=== PATIENT | female | born 1965 | race Caucasian/White ===

== ENCOUNTER 2016-10-25 11:22 | Emergency (ER) | payer BC ==
[2016-10-25 11:30] VITALS: BP 155/88
[2016-10-25] MEDS ORDERED: Sodium Chloride 0.9% 10 ML Syringe FLUSH PRN (11:39)
[2016-10-25] MEDS ORDERED: Aspirin 81 MG Tab.Chew PO ONE (11:53)
[2016-10-25] MEDS ORDERED: Alum Hydrox/Mag Hydrox/Simeth 30 ML, Lidocaine 2% 15 ML PO ONE ×2 (11:53)
--- NOTE | 2016-10-25 11:59 | EDM.PDOC ---
ED HPI GENERAL MEDICAL PROBLEM - General Chief Complaint: Chest Pain Stated Complaint: CHEST PAIN Time Seen by Provider: 10/25/16 11:39 Source of Information: Reports: Patient History Limitations: Reports: No Limitations - History of Present Illness INITIAL COMMENTS - FREE TEXT/NARRATIVE: Patient is a 51-year-old female presents ED complaining of substernal chest discomfort that radiates into the right side of her neck and right shoulder. Describes this as a dull ache rated 5 out of 10 with admission to the ED. States initially started this morning with a fluttering to her chest. The fluttering is a chronic issue that comes and goes with no precipitating factors. This morning with onset it lasted longer than usual. During this time she developed these symptoms as listed above. Takes baby aspirin 162 mg prior to seeking medical care at [facility]. [facility] sent the patient here for further evaluation and treatment. There are no known precipitating factors. Nothing makes it better. She did get mildly dizzy with onset and continues to have some dizziness with ambulating. Currently does not have any shortness of breath. She was evaluated 15 years ago for similar symptoms. She was diagnosed with mitral valve prolapse which was negative with echocardiogram. Holter monitor was obtained at that time as well with no significant findings. Currently denies any fever, chills, short of breath, nausea/vomiting, diaphoresis, increased stress, changes in medications, swelling/pain to her lower extremities, recent hospitalization, recent long travel, hemoptysis, or history of DVT/PE. She is on no exogenous estrogen does not smoke. She is currently going through menopause. Additional past medical history includes hyperthyroidism with thyroidectomy. Normal TSH per patient. Current medications albuterol. She does have multiple first-degree relatives with coronary artery disease. Denies any excessive caffeine use. Chest Pain Score (Numeric/FACES): 5 - Related Data Allergies Allergy/AdvReac Type Severity Reaction Status Date / Time bee venom protein (honey bee) Allergy Cannot Verified 10/25/16 11:29 Remember Home Meds: Home Meds . [No Known Home Meds] 10/25/16 [History] Past Medical History - Past Surgical History Endocrine Surgical History: Reports: Thyroidectomy Social & Family History - Tobacco Use Smoking Status *Q: Never Smoker - Caffeine Use Caffeine Use: Reports: Coffee - Recreational Drug Use Recreational Drug Use: No ED ROS GENERAL - Review of Systems Review Of Systems: ROS reveals no pertinent complaints other than HPI. ED EXAM, GENERAL - Physical Exam Exam: See Below Exam Limited By: No Limitations General Appearance: Alert, WD/WN, No Apparent Distress Ears: Hearing Grossly Normal Nose: Normal Inspection Throat/Mouth: Normal Inspection, Normal Oropharynx, Normal Voice, No Airway Compromise Neck: Normal Inspection, Supple, Non-Tender, Full Range of Motion. No: Lymphadenopathy (L), Lymphadenopathy (R) Respiratory/Chest: No Respiratory Distress, Lungs Clear, Normal Breath Sounds, No Accessory Muscle Use, Chest Non-Tender Cardiovascular: Normal Peripheral Pulses, Regular Rate, Rhythm, No JVD, No Murmur Peripheral Pulses: 2+: Radial (R) GI/Abdominal: Normal Bowel Sounds, Soft, Non-Tender, No Organomegaly, No Distention Back Exam: Normal Inspection Extremities: Normal Inspection, Normal Range of Motion, Non-Tender, No Pedal Edema Neurological: Alert, Oriented, CN II-XII Intact, Normal Cognition, No Motor/ Sensory Deficits Psychiatric: Normal Affect, Normal Mood Skin Exam: Warm, Dry, Intact, Normal Color Course - Vital Signs Last Recorded V/S: Last Vital Signs Temp 96.6 F 10/25/16 11:25 Pulse 73 10/25/16 11:25 Resp 16 10/25/16 11:25 BP 155/88 H 10/25/16 11:25 Pulse Ox 100 10/25/16 11:25 - Orders/Labs/Meds Orders: Active Orders 24 hr Category Date Time Status EKG 12 Lead [EKG Documentation Completion] [RC] STAT Care 10/25/16 11:36 Active Holter Monitor 48 Hours [RC] .PRN Care 10/25/16 13:49 Active Peripheral IV Care [RC] . DIRECTED Care 10/25/16 11:39 Active Peripheral IV Insertion Adult [OM.PC] Routine Oth 10/25/16 11:39 Ordered Labs: Laboratory Tests 10/25/16 10/25/16 10/25/16 Range/Units 11:30 11:30 11:30 WBC 6.18 (3.98-10.04) K/mm3 RBC 4.90 (3.98-5.22) M/mm3 Hgb 14.6 (11.2-15.7) gm/L Hct 41.6 (34.1-44.9) % MCV 84.9 (79.4-94.8) fl MCH 29.8 (25.6-32.2) pg MCHC 35.1 (32.2-35.5) g/dl RDW Std Deviation 38.9 (36.4-46.3) fL Plt Count 287 (182-369) K/mm3 MPV 10.0 (9.4-12.3) fl Neut % (Auto) 53.9 (34.0-71.1) % Lymph % (Auto) 29.1 (19.3-51.7) % [place] % (Auto) 13.6 H (4.7-12.5) % Eos % (Auto) 2.8 (0.7-5.8) Baso % (Auto) 0.3 (0.1-1.2) % Neut # (Auto) 3.33 (1.56-6.13) K/mm3 Lymph # (Auto) 1.80 (1.18-3.74) K/mm3 [place] # (Auto) 0.84 H (0.24-0.36) K/mm3 Eos # (Auto) 0.17 (0.04-0.36) K/mm3 Baso # (Auto) 0.02 (0.01-0.08) K/mm3 PT 11.1 (8.0-13.0) SECONDS INR 1.02 APTT 28 (22-36) SECONDS Sodium 139 (136-145) mEq/L Potassium 3.9 (3.5-5.1) mEq/L Chloride 104 (98-107) mEq/L Carbon Dioxide 26 (21-32) mEq/L Anion Gap 12.9 (5-15) BUN 13 (7-18) mg/dL Creatinine 0.9 (0.55-1.02) mg/dL Est Cr Clr Drug Dosing 72.92 mL/min Estimated GFR (MDRD) > 60 (>60) mL/min BUN/Creatinine Ratio 14.4 (14-18) Glucose 95 (74-106) mg/dL Calcium 9.3 (8.5-10.1) mg/dL Magnesium 1.9 (1.8-2.4) mg/dl Total Bilirubin 0.7 (0.2-1.0) mg/dL AST 25 (15-37) U/L ALT 42 (14-59) U/L Alkaline Phosphatase 70 (46-116) U/L Troponin I < 0.017 (0.00-0.056) ng/mL C-Reactive Protein < 0.2 (<1.0) mg/dL Total Protein 7.8 (6.4-8.2) g/dl Albumin 4.3 (3.4-5.0) g/dl Globulin 3.5 gm/dL Albumin/Globulin Ratio 1.2 (1-2) TSH 3rd Generation (0.358-3.74) uIU/mL 10/25/16 10/25/16 Range/Units 13:26 14:07 WBC (3.98-10.04) K/mm3 RBC (3.98-5.22) M/mm3 Hgb (11.2-15.7) gm/L Hct (34.1-44.9) % MCV (79.4-94.8) fl MCH (25.6-32.2) pg MCHC (32.2-35.5) g/dl RDW Std Deviation (36.4-46.3) fL Plt Count (182-369) K/mm3 MPV (9.4-12.3) fl Neut % (Auto) (34.0-71.1) % Lymph % (Auto) (19.3-51.7) % [place] % (Auto) (4.7-12.5) % Eos % (Auto) (0.7-5.8) Baso % (Auto) (0.1-1.2) % Neut # (Auto) (1.56-6.13) K/mm3 Lymph # (Auto) (1.18-3.74) K/mm3 [place] # (Auto) (0.24-0.36) K/mm3 Eos # (Auto) (0.04-0.36) K/mm3 Baso # (Auto) (0.01-0.08) K/mm3 PT (8.0-13.0) SECONDS INR APTT (22-36) SECONDS Sodium (136-145) mEq/L Potassium (3.5-5.1) mEq/L Chloride (98-107) mEq/L Carbon Dioxide (21-32) mEq/L Anion Gap (5-15) BUN (7-18) mg/dL Creatinine (0.55-1.02) mg/dL Est Cr Clr Drug Dosing mL/min Estimated GFR (MDRD) (>60) mL/min BUN/Creatinine Ratio (14-18) Glucose (74-106) mg/dL Calcium (8.5-10.1) mg/dL Magnesium (1.8-2.4) mg/dl Total Bilirubin (0.2-1.0) mg/dL AST (15-37) U/L ALT (14-59) U/L Alkaline Phosphatase (46-116) U/L Troponin I < 0.017 (0.00-0.056) ng/mL C-Reactive Protein (<1.0) mg/dL Total Protein (6.4-8.2) g/dl Albumin (3.4-5.0) g/dl Globulin gm/dL Albumin/Globulin Ratio (1-2) TSH 3rd Generation 1.251 (0.358-3.74) uIU/mL Meds: Medications Discontinued Medications Generic Name Dose Route Start Last Admin Trade Name Freq PRN Reason Stop Dose Admin Aspirin 162 mg 10/25/16 11:53 10/25/16 11:57 Aspirin PO 10/25/16 11:54 162 mg DAILY ONE Administration Al Hydroxide/Mg Hydroxide 30 0 ml 10/25/16 11:53 10/25/16 11:56 ml/ Lidocaine HCl 15 ml PO 10/25/16 11:54 45 ml ONETIME ONE Administration Sodium Chloride 1,000 mls @ 50 mls/hr 10/25/16 12:00 10/25/16 12:00 Normal Saline IV 50 mls/hr ASDIRECTED MERA Administration Sodium Chloride 10 ml 10/25/16 11:39 10/25/16 11:42 Saline Flush FLUSH 10 ml ASDIRECTED PRN Administration Keep Vein Open - Re-Assessments/Exams Free Text/Narrative Re-Assessment/Exam: Peripheral IV established with normal saline 50 mL per hour, GI cocktail, and baby aspirin 162 mg by mouth. Initial labs and studies include: CBC, chem 14, magnesium, coag studies, troponin, chest x-ray one view, and EKG. Chest x-ray reviewed with Dr. Diane Mata. No acute findings noted. Final interpretation pending. 10/25/16 12:40 Labs were reviewed. CBC and chem 14 were essentially normal. Troponin was normal as well. Will obtain a second troponin 2 hours from initial blood work. Patient's heart score is a 2 leaving her at a low risk for adverse cardiac event. Close follow-up with PCP is required to which the patient was made aware. Will wait for results of the second troponin. 10/25/16 13:51 2nd Troponin was negative. Ordered 48 hr holter monitor. Will discharge patient home with instructions as documented. TSH was negative. Departure - Departure Time of Disposition: 13:53 Disposition: Home, Self-Care 01 Condition: Good Clinical Impression: Atypical chest pain, Intermittent palpitations Instructions: Nonspecific Chest Pain, [id number] Referrals: Segun Florentino MD [Primary Care Provider] - Forms: ED Department Discharge Additional Instructions: Labs reviewed essentially normal. EKG and chest x-ray did not elicit any concerning findings. Etiology current complaint unclear. Due to history of palpitations have increased over the past week which was a Holter monitor for 48 hours to further help delineate if any heart arrhythmias are present. See your PCP in one week for results and to further discuss testing that maybe required. Return to ED for any new or worsening symptoms. - My Orders Last 24 Hours: My Active Orders 10/25/16 11:36 EKG 12 Lead [EKG Documentation Completion] [RC] STAT 10/25/16 11:39 Peripheral IV Care [RC] . DIRECTED Peripheral IV Insertion Adult [OM.PC] Routine 10/25/16 13:49 Holter Monitor 48 Hours [RC] .PRN - Assessment/Plan Last 24 Hours: My Active Orders 10/25/16 11:36 EKG 12 Lead [EKG Documentation Completion] [RC] STAT 10/25/16 11:39 Peripheral IV Care [RC] . DIRECTED Peripheral IV Insertion Adult [OM.PC] Routine 10/25/16 13:49 Holter Monitor 48 Hours [RC] .PRN
[2016-10-25] MEDS ORDERED: Sodium Chloride 0.9% 1,000 ML IV SCH (12:00)
--- NOTE | 2016-10-25 13:39 | CR ---
Chest: Portable view of the chest was obtained. Comparison: Previous chest x-ray of 01/17/12. Heart size and mediastinum are within normal limits for portable technique. Lungs are clear. Bony structures are grossly intact. Impression: 1. Nothing acute is identified on portable chest x-ray. Diagnostic code #1
== END 2016-10-25 14:45 | disposition home or self-care (01) ==
LOC: JD.ED 11:22
DX: R07.89 Other chest pain (principal); R00.2 Palpitations; E89.0 Postprocedural hypothyroidism; Z91.030 Bee allergy status
CPT/HCPCS: 36415; 71010; 80053; 83735; 84443; 84484; 85025; 85610; 85730; 86140; 93005; 93226; 96360; 96361; 99285; A9270; J7040; J7050; 93225; 99284

== ENCOUNTER 2017-03-04 17:00 | Emergency (ER) | payer BC ==
[2017-03-04] MEDS ORDERED: Aspirin 81 MG Tab.Chew PO ONE (17:13)
[2017-03-04] MEDS ORDERED: Morphine 2 MG/ML Syringe IVPUSH PRN ×2 (17:13→19:08)
[2017-03-04] MEDS ORDERED: Sodium Chloride 0.9% 10 ML Syringe FLUSH PRN (17:13)
[2017-03-04] MEDS ORDERED: Alum Hydrox/Mag Hydrox/Simeth 30 ML, Lidocaine 2% 15 ML PO ONE ×2 (17:14)
[2017-03-04] MEDS ORDERED: Sodium Chloride 0.9% 1,000 ML IV SCH (17:15)
[2017-03-04] MEDS: Nitroglycerin 0.4 MG Tab.SL SL PRN ×3 (17:23→17:35)
--- NOTE | 2017-03-04 17:25 | EDM.PDOC ---
ED HPI GENERAL MEDICAL PROBLEM - General Chief Complaint: Chest Pain Stated Complaint: CHEST PAIN Time Seen by Provider: 03/04/17 17:05 Source of Information: Reports: Patient History Limitations: Reports: No Limitations - History of Present Illness INITIAL COMMENTS - FREE TEXT/NARRATIVE: Patient is a 51-year-old female who presents to the ED complaining of left sided chest discomfort with radiation to the left neck and also left shoulder. Described as being sharp worsened with taking a deep breath at times. States over the past few days she's had multiple spells as such. Symptoms wax and wane with intensity. Today after dinner she was butchering pigs started experiences sharp left-sided discomfort that was severe in nature rated 10 out of 10. She states symptoms waxed and wane with intensity. She was nauseated with admission to the ED. States she's had on-and-off chest pain with exertion that relieves with rest over the past 2 weeks. Again she's been doing nothing unusual as far as activities. There's been no recent falls. She has no history of hypercholesteremia, hypertension, coronary disease, smoking, or diabetes. States she does have first-degree family members with heart disease. Left Chest Pain Score (Numeric/FACES): 8 - Related Data Allergies Allergy/AdvReac Type Severity Reaction Status Date / Time bee venom protein (honey bee) Allergy Cannot Verified 10/25/16 11:29 Remember Home Meds: Home Meds . [No Known Home Meds] 10/25/16 [History] Past Medical History Cardiovascular History: Reports: Other (See Below) Other Cardiovascular History: hypotension - Past Surgical History Endocrine Surgical History: Reports: Thyroidectomy Social & Family History - Family History Family Medical History: Noncontributory Cardiac: Reports: MA Other Cardiac Family History: mother father siblings - Tobacco Use Smoking Status *Q: Never Smoker - Caffeine Use Caffeine Use: Reports: None - Recreational Drug Use Recreational Drug Use: No ED ROS GENERAL - Review of Systems Review Of Systems: See Below Constitutional: Reports: No Symptoms Respiratory: Reports: Shortness of Breath, Pleuritic Chest Pain. Denies: Cough , Sputum, Hemoptysis Cardiovascular: Reports: Chest Pain. Denies: Dyspnea on Exertion, Lightheadedness, Palpitations, Syncope GI/Abdominal: Reports: Abdominal Pain (underneath left boob non reproducible, believe to be chest in origin. ), Nausea. Denies: Constipation, Diarrhea, Vomiting Musculoskeletal: Reports: Neck Pain, Shoulder Pain Neurological: Denies: Dizziness, Headache, Numbness, Tingling ED EXAM, GENERAL - Physical Exam Exam: See Below Exam Limited By: No Limitations General Appearance: Alert, WD/WN, Severe Distress Ears: Hearing Grossly Normal Nose: Normal Inspection Throat/Mouth: Normal Voice, No Airway Compromise Neck: Normal Inspection, Supple, Non-Tender, Full Range of Motion Respiratory/Chest: No Respiratory Distress, Lungs Clear, Normal Breath Sounds, No Accessory Muscle Use, Chest Non-Tender (With palpation) Cardiovascular: Normal Peripheral Pulses, No Murmur, Tachycardia Peripheral Pulses: 3+: Posterior Tibial (L), Posterior Tibial (R), 4+: Radial (L ), Radial (R) GI/Abdominal: Normal Bowel Sounds, Soft, Non-Tender, No Organomegaly, No Distention, No Abnormal Bruit, No Mass Back Exam: Normal Inspection Extremities: Normal Inspection, Normal Range of Motion, Non-Tender, No Pedal Edema Neurological: Alert, Oriented, CN II-XII Intact, Normal Cognition, No Motor/ Sensory Deficits Psychiatric: Normal Affect Skin Exam: Warm, Dry, Intact, Normal Color Course - Vital Signs Last Recorded V/S: Last Vital Signs Temp 98 F 03/04/17 17:01 Pulse 78 03/04/17 20:16 Resp 21 H 03/04/17 17:01 BP 134/81 03/04/17 20:16 Pulse Ox 100 03/04/17 17:01 - Orders/Labs/Meds Orders: Active Orders 24 hr Category Date Time Status EKG Documentation Completion [RC] STAT Care 03/04/17 17:12 Active EKG Documentation Completion [RC] STAT Care 03/04/17 18:19 Active Peripheral IV Care [RC] . DIRECTED Care 03/04/17 17:14 Active Chest 1V Frontal [CR] Stat Exams 03/04/17 17:13 Taken Chest Abdomen Pelvis w Cont [CT] Stat Exams 03/04/17 17:22 Taken Peripheral IV Insertion Adult [OM.PC] Stat Oth 03/04/17 17:13 Ordered Labs: Laboratory Tests 03/04/17 03/04/17 03/04/17 Range/Units 17:08 17:08 17:08 WBC 20.25 H (3.98-10.04) K/mm3 RBC 4.83 (3.98-5.22) M/mm3 Hgb 14.4 (11.2-15.7) gm/L Hct 40.9 (34.1-44.9) % MCV 84.7 (79.4-94.8) fl MCH 29.8 (25.6-32.2) pg MCHC 35.2 (32.2-35.5) g/dl RDW Std Deviation 39.5 (36.4-46.3) fL Plt Count 407 H (182-369) K/mm3 MPV 9.9 (9.4-12.3) fl Neut % (Auto) 61.7 (34.0-71.1) % Lymph % (Auto) 27.3 (19.3-51.7) % [place] % (Auto) 8.2 (4.7-12.5) % Eos % (Auto) 1.4 (0.7-5.8) Baso % (Auto) 0.2 (0.1-1.2) % Neut # (Auto) 12.47 H (1.56-6.13) K/mm3 Lymph # (Auto) 5.53 H (1.18-3.74) K/mm3 [place] # (Auto) 1.66 H (0.24-0.36) K/mm3 Eos # (Auto) 0.29 (0.04-0.36) K/mm3 Baso # (Auto) 0.05 (0.01-0.08) K/mm3 Manual Slide Review Abnormal smear PT 10.4 (8.0-13.0) SECONDS INR 0.96 APTT 24 (22-36) SECONDS D-Dimer, Quantitative < 0.19 L (0.19-0.59) mg/L Sodium 140 (136-145) mEq/L Potassium 3.2 L (3.5-5.1) mEq/L Chloride 104 (98-107) mEq/L Carbon Dioxide 25 (21-32) mEq/L Anion Gap 14.2 (5-15) BUN 22 H (7-18) mg/dL Creatinine 1.1 H (0.55-1.02) mg/dL Est Cr Clr Drug Dosing 59.66 mL/min Estimated GFR (MDRD) 52 (>60) mL/min BUN/Creatinine Ratio 20.0 H (14-18) Glucose 115 H (74-106) mg/dL Calcium 9.6 (8.5-10.1) mg/dL Magnesium (1.8-2.4) mg/dl Total Bilirubin 0.5 (0.2-1.0) mg/dL AST 16 (15-37) U/L ALT 21 (14-59) U/L Alkaline Phosphatase 77 (46-116) U/L Troponin I < 0.017 (0.00-0.056) ng/mL C-Reactive Protein < 0.2 (<1.0) mg/dL Total Protein 7.8 (6.4-8.2) g/dl Albumin 4.3 (3.4-5.0) g/dl Globulin 3.5 gm/dL Albumin/Globulin Ratio 1.2 (1-2) TSH 3rd Generation 1.333 (0.358-3.74) uIU/mL 03/04/17 03/04/17 Range/Units 20:05 20:05 WBC (3.98-10.04) K/mm3 RBC (3.98-5.22) M/mm3 Hgb (11.2-15.7) gm/L Hct (34.1-44.9) % MCV (79.4-94.8) fl MCH (25.6-32.2) pg MCHC (32.2-35.5) g/dl RDW Std Deviation (36.4-46.3) fL Plt Count (182-369) K/mm3 MPV (9.4-12.3) fl Neut % (Auto) (34.0-71.1) % Lymph % (Auto) (19.3-51.7) % [place] % (Auto) (4.7-12.5) % Eos % (Auto) (0.7-5.8) Baso % (Auto) (0.1-1.2) % Neut # (Auto) (1.56-6.13) K/mm3 Lymph # (Auto) (1.18-3.74) K/mm3 [place] # (Auto) (0.24-0.36) K/mm3 Eos # (Auto) (0.04-0.36) K/mm3 Baso # (Auto) (0.01-0.08) K/mm3 Manual Slide Review PT (8.0-13.0) SECONDS INR APTT (22-36) SECONDS D-Dimer, Quantitative (0.19-0.59) mg/L Sodium (136-145) mEq/L Potassium (3.5-5.1) mEq/L Chloride (98-107) mEq/L Carbon Dioxide (21-32) mEq/L Anion Gap (5-15) BUN (7-18) mg/dL Creatinine (0.55-1.02) mg/dL Est Cr Clr Drug Dosing mL/min Estimated GFR (MDRD) (>60) mL/min BUN/Creatinine Ratio (14-18) Glucose (74-106) mg/dL Calcium (8.5-10.1) mg/dL Magnesium 2.1 (1.8-2.4) mg/dl Total Bilirubin (0.2-1.0) mg/dL AST (15-37) U/L ALT (14-59) U/L Alkaline Phosphatase (46-116) U/L Troponin I < 0.017 (0.00-0.056) ng/mL C-Reactive Protein (<1.0) mg/dL Total Protein (6.4-8.2) g/dl Albumin (3.4-5.0) g/dl Globulin gm/dL Albumin/Globulin Ratio (1-2) TSH 3rd Generation (0.358-3.74) uIU/mL Meds: Medications Discontinued Medications Generic Name Dose Route Start Last Admin Trade Name Freq PRN Reason Stop Dose Admin Aspirin 324 mg 03/04/17 17:13 03/04/17 17:21 Aspirin PO 03/04/17 17:14 324 mg ONETIME ONE Administration Al Hydroxide/Mg Hydroxide 30 0 ml 03/04/17 17:14 03/04/17 17:25 ml/ Lidocaine HCl 15 ml PO 03/04/17 17:15 45 ml ONETIME ONE Administration Sodium Chloride 1,000 mls @ 125 mls/hr 03/04/17 17:15 03/04/17 17:22 Normal Saline IV 125 mls/hr ASDIRECTED MERA Administration Nitroglycerin/Dextrose 25 mg in 250 mls @ 6 mls/hr 03/04/17 17:45 03/04/17 19 :25 Nitroglycerin 25 Mg/D5w 250 Ml IV 14 mcg/min TITRATE MERA 8.4 mls/hr Protocol Titration 10 MCG/MIN Sodium Chloride 100 mls @ 75 mls/hr 03/04/17 17:45 03/04/17 18:36 Normal Saline IV 75 mls/hr ASDIRECTED MERA Administration Heparin Sodium/Dextrose 25,000 units in 500 mls @ 0 mls/hr 03/04/17 20:00 01/09 20:17 Heparin 25,000 Units In D5w 500 Ml IV 16.8 mls/hr TITRATE MERA Administration Protocol 12 UNITS/KG/HR Iopamidol 100 ml 03/04/17 17:45 03/04/17 18:36 Isovue-370 (76%) IVPUSH 03/04/17 17:46 100 ml ONETIME ONE Administration Iopamidol 25 ml 03/04/17 17:46 03/04/17 18:36 Isovue-370 (76%) IVPUSH 03/04/17 17:47 25 ml ONETIME ONE Administration Metoprolol Tartrate 50 mg 03/04/17 19:58 03/04/17 20:16 Lopressor PO 03/04/17 19:59 50 mg ONETIME ONE Administration Morphine Sulfate 2 mg 03/04/17 17:13 03/04/17 17:23 Morphine IVPUSH 2 mg ONETIME PRN Administration Chest Pain Morphine Sulfate 2 mg 03/04/17 19:08 03/04/17 19:22 Morphine IVPUSH 2 mg ONETIME PRN Administration Chest Pain Nitroglycerin 0.4 mg 03/04/17 17:13 03/04/17 17:35 Nitrostat SL 0.4 mg Q5M PRN Administration Chest Pain Simvastatin 40 mg 03/04/17 19:59 03/04/17 20:16 Zocor PO 03/04/17 20:00 40 mg ONETIME ONE Administration Sodium Chloride 10 ml 03/04/17 17:13 Saline Flush FLUSH ASDIRECTED PRN Keep Vein Open - Re-Assessments/Exams Free Text/Narrative Re-Assessment/Exam: IV established with normal saline 125 mL per hour, morphine 2 mg IVP, aspirin 324 mg by mouth, GI cocktail by mouth, and nitroglycerin tab 0.4 mg sublingual every 5 minutes when necessary with parameters. EKG shows ST depression in leads 2,3, and avf along with V2-V6 suspects inferior inferior apical ischemia. This is compared to previous EKG obtained 10/25 with no findings as noted above. Will treat with the above therapies. Chest x-ray will be obtained. CTA of the chest wall is likely be obtained secondary to severe pain patient's parent experiencing to rule out aortic dissection. Blood pressure on the left right arm was 159/91 with a heart rate of 104 SPO2 100% respiratory rate 23. Will obtain blood pressure left arm as well. Peripheral pulses are intact equal bilaterally upper and lower. 1738 Per nursing staff patient's chest pain dropped to a 2 out of 10 with 2 sublingual nitroglycerin and 2 mg morphine IVP. Blood pressure remains 136/83 with a heart rate of 82. CXR: No acute findings noted on chest x-ray. Reviewed with Dr. Funes. Final interpretation pending. Labs reviewed: White blood cell count 20.25, hemoglobin 14.4, platelet count 407 , neutrophil percentage is 12.47, d-dimer less than 0.19, potassium 3.2, creatinine 1.1, glucose 115, troponin less than 0.017, CRP less than 0.2, TSH 1.333. 1815 Per nursing staff patients pain is a 1/10 with nitro gtt running. CTA Chest/abdomen: Preliminary interpretation with Dr. Funes no signs of aortic dissection or PE. Final interpretation is pending. 1820 Will obtain another EKG. CTA chest: No acute findings. CTA abdomen: Nonspecific loops of gas and fluid-filled small bowel. This could be secondary to enteritis. There is no signs of bowel obstruction. Normal abdominal aorta. Shared results of CT's and labs with patient. Again patient states she has been having pain to the left chest for the past 2 weeks brought on by exertion relieved with rest. Will order Heparin gtt. 03/04/17 19:01 Reassessment, patient states pain is currently a 3 out of 10. Blood pressure is normotensive. Ordered 2 mg of morphine. Second EKG has been ordered and pending. Pain is nonreproducible with taking a deep breath, palpation, or movement. 2nd EKG sinus rhythm rate of 80 with early R-wave transition consider septal hypertrophy, mild ST depression in leads 2, 3, aVF improved ST depression V3 through V6 in comparison to the ECG #1. 03/04/17 20:00 Reassessment, patient states pain is localized to left chest . BP 123/72 HR 80's. Ordered metoprolol 50mg PO and simvastin 40mg PO. Patient requests transfer to [facility]. [address] Fischer environmental compliance inspector Hospitalists with [facility]. She has accepted the patient. Ambulance has been notified for transfer. All transfer paperwork completed. Patient transferred to [facility]. 2nd Troponin WNL. Departure - Departure Time of Disposition: 21:25 Disposition: DC/Tfer to Acute Hospital 02 Reason for Transfer *Q: Other Condition: Good Clinical Impression: Chest pain, rule out acute myocardial infarction Referrals: PCP,None [Primary Care Provider] - Forms: ED Department Discharge - My Orders Last 24 Hours: My Active Orders 03/04/17 17:12 EKG Documentation Completion [RC] STAT 03/04/17 17:13 Chest 1V Frontal [CR] Stat Peripheral IV Insertion Adult [OM.PC] Stat 03/04/17 17:14 Peripheral IV Care [RC] . DIRECTED 03/04/17 17:22 Chest Abdomen Pelvis w Cont [CT] Stat 03/04/17 18:19 EKG Documentation Completion [RC] STAT - Assessment/Plan Last 24 Hours: My Active Orders 03/04/17 17:12 EKG Documentation Completion [RC] STAT 03/04/17 17:13 Chest 1V Frontal [CR] Stat Peripheral IV Insertion Adult [OM.PC] Stat 03/04/17 17:14 Peripheral IV Care [RC] . DIRECTED 03/04/17 17:22 Chest Abdomen Pelvis w Cont [CT] Stat 03/04/17 18:19 EKG Documentation Completion [RC] STAT
[2017-03-04] MEDS ORDERED: Iopamidol 755 Mg/ML 100 ML Bottle IVPUSH ONE (17:45)
[2017-03-04] MEDS ORDERED: Nitroglycerin/D5W 25 MG/250 ML BOTTLE IV SCH (17:45)
[2017-03-04] MEDS ORDERED: Sodium Chloride 0.9% 100 ML IV SCH (17:45)
[2017-03-04] MEDS ORDERED: Iopamidol 755 MG/ML 50 ML Bottle IVPUSH ONE (17:46)
[2017-03-04] MEDS ORDERED: Metoprolol Tartrate 50 MG Tab PO ONE (19:58)
[2017-03-04] MEDS ORDERED: Simvastatin 40 MG Tab PO ONE (19:59)
[2017-03-04] MEDS ORDERED: Heparin Sodium/D5W 25,000 UNITS/500 ML BAG IV SCH (20:00)
[2017-03-04 20:24] VITALS: BP 134/81
--- NOTE | 2017-03-05 07:53 | CR ---
Chest: Frontal view of the chest was obtained utilizing portable technique. Comparison: Prior chest x-ray of 10/25/14. Heart size and mediastinum are within normal limits for portable technique. Lungs are clear. Bony structures are grossly intact. Impression: 1. Nothing acute is identified on portable chest x-ray. Diagnostic code #1
--- NOTE | 2017-03-05 07:53 | CT ---
CT chest Technique: Multiple axial sections were obtained from above the lung apices inferiorly through the lung bases. Intravenous contrast was utilized. Study performed as a CT aortogram study. Findings: No pericardial thickening is seen. Mediastinum and hilar regions show no adenopathy or mass. Aorta shows no aneurysmal dilatation or dissection. Pulmonary arteries show no filling defects to indicate pulmonary embolism. L ungs are clear. No parenchymal density seen within either lung. 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 Impression: 1. Previous partial thyroidectomy. 2. No additional abnormality is seen on CT study of the chest. Diagnostic code #2 I agree with preliminary report issued by [facility] ([facility] preliminary report dictated on 03/04/17, 7:26 PM Central Time) CT abdomen and pelvis Technique: Multiple axial sections were obtained from above the dome of the diaphragm inferiorly to above the hips. Intravenous contrast was given. Study performed as a CT angiogram protocol. Findings: Cyst is identified within the left lobe of the liver measuring approximately 3.2 cm. Liver is otherwise unremarkable in its appearance. Spleen appears within normal limits. Adrenal glands show no nodule. Kidneys show symmetric contrast enhancement without hydronephrosis or mass. Pancreas is within normal limits. No retroperitoneal adenopathy or mesenteric abnormalities are seen. Visualized pelvis shows no mass. No inflammatory change or free fluid is seen. Loops of small bowel containing fluid are seen which are felt to be within normal limits. Aorta shows mild atherosclerotic irregularity. No aneurysm or stenosis is seen. Right and left renal arteries appear within normal limits. Single renal arteries are seen. Celiac axis and superior mesenteric artery appears within normal limits. Inferior mesenteric artery appears patent. Common iliac arteries are within normal limits. Visualized portions of the external and internal iliac arteries are within normal limits. Bone window settings appear within normal limits for the patient's age. Impression: 1. 3.2 cm left sided liver cyst. 2. Mild atheromatous irregularity within the abdominal aorta. Other portions of the aortoiliac angiogram appear within normal limits. 3. Other findings felt to be incidental as noted above. Diagnostic code #2 I agree with preliminary report issued by [facility] ([facility] preliminary report dictated on 03/04/17, 7:37 PM Central Time)
== END 2017-03-04 21:15 ==
LOC: JD.ED 17:00
DX: R07.89 Other chest pain (principal); Z91.030 Bee allergy status
CPT/HCPCS: 36415; 71010; 71260; 74177; 80053; 83735; 84443; 84484; 85025; 85379; 85610; 85730; 86140; 93005; 96365; 96366; 96368; 96375; 96376; 99285; A9270; J1644; J2270; J7030; J7040; Q9967; 93010; 99284

== ENCOUNTER 2022-02-06 07:20 | Emergency (ER) | payer BC ==
[2022-02-06] MEDS ORDERED: Ondansetron 4 MG/2 ML SDV ONE (07:41)
[2022-02-06] MEDS ORDERED: fentaNYL 100 MCG/2 ML SDV IVPUSH ONE ×3 (07:43→11:10)
[2022-02-06] MEDS ORDERED: Lactated Ringers 1,000 ML IV ONE (07:45)
[2022-02-06] MEDS ORDERED: Iopamidol 755 Mg/ML 100 ML Bottle IVPUSH ONE (08:16)
[2022-02-06] MEDS ORDERED: Iopamidol 755 MG/ML 50 ML Bottle IVPUSH ONE (08:16)
[2022-02-06] MEDS ORDERED: Sodium Chloride 0.9% 10 ML Syringe FLUSH PRN (08:16)
[2022-02-06 08:41] LABS: ESTIMATED GFR 74 mL/min (>60)
[2022-02-06] MEDS: fentaNYL 100 MCG/2 ML SDV IVPUSH ONE (08:51)
[2022-02-06] MEDS: Diphtheria,Pertussis(Acell),Tetanus Vaccine 0.5 ML Syringe IM ONE ×3 (08:51→12:30)
[2022-02-06] MEDS ORDERED: LORazepam 2 MG/ML SDV IVPUSH ONE (09:00)
[2022-02-06] MEDS: fentaNYL 100 MCG/2 ML SDV ONE ×2 (10:32→12:31)
[2022-02-06] MEDS ORDERED: Lidocaine 1% 10 ML MDV INJECT ONE (10:51)
[2022-02-06] MEDS: Lidocaine 1% 10 ML MDV ONE ×2 (11:09→12:32)
[2022-02-06 12:25] VITALS: PULSE 74
[2022-02-06] MEDS: LORazepam 2 MG/ML SDV ONE ×2 (12:29→12:34)
[2022-02-06] MEDS ORDERED: Ondansetron 4 MG/2 ML SDV IVPUSH ONE (12:37)
[2022-02-06 14:23] VITALS: BP 111/57
[2022-02-07] MEDS: fentaNYL 100 MCG/2 ML SDV IVPUSH ONE (16:43)
== END 2022-02-06 11:15 ==
LOC: JD.ED 07:20
DX: S06.6X0A Traumatic subarachnoid hemorrhage without loss of consciousness, initial encounter (principal); S32.030A Wedge compression fracture of third lumbar vertebra, initial encounter for closed fracture; S32.018A Other fracture of first lumbar vertebra, initial encounter for closed fracture; S22.081A Stable burst fracture of T11-T12 vertebra, initial encounter for closed fracture; S01.01XA Laceration without foreign body of scalp, initial encounter; I10 Essential (primary) hypertension; Z91.030 Bee allergy status; Z23 Encounter for immunization; V49.40XA Driver injured in collision with unspecified motor vehicles in traffic accident, initial encounter; Y92.410 Unspecified street and highway as the place of occurrence of the external cause
CPT/HCPCS: 12002; 36415; 70450; 70450-26; 71260; 71260-26; 72125; 72125-26; 72128; 72128-26; 72131; 72131-26; 73030-26-LT; 73030-LT; 73060-26-LT; 73060-LT; 74177; 74177-26; 80053; 81001; 83605; 85025; 85610; 85730; 86850; 86900; 86901; 90471; 90715; 96361; 96374; 96375; 96376; 99285-25; J2060; J2405; J3010; J3490; J7120; Q9967